=== PATIENT | female | born 1980 | race Caucasian/White ===

== ENCOUNTER 2016-10-06 00:15 | Emergency (ER) | payer OTHER | END 2016-10-06 02:00 | disposition home or self-care (01) | LOC: ER 00:15 | DX: S62.617A Displaced fracture of proximal phalanx of left little finger, initial encounter for closed fracture (principal); F17.210 Nicotine dependence, cigarettes, uncomplicated; Z98.51 Tubal ligation status; Z90.710 Acquired absence of both cervix and uterus; Z88.5 Allergy status to narcotic agent; W22.8XXA Striking against or struck by other objects, initial encounter; Y92.009 Unspecified place in unspecified non-institutional (private) residence as the place of occurrence of the external cause ==